=== PATIENT | male | born 1945 | race Caucasian/White ===

== ENCOUNTER → 2017-01-23 | Outpatient (REF) | payer OTHER ==
[~2017-01-23] MED LIST: /HCTZ25TA PO; /LINE60TA PO; AMLO10TA2 PO; ANDR1.62 TD; ASPI81TA85 PO; ATOR1TAB21 PO; BACTRIM; CENTTAB PO; COLA50CA3 PO; HYDR7.5T30 PO; LEVAQUIN; NEUR300C PO; PERCOCET PO; TRAZ50TA2 PO; TYLE325T5 PO; VIAG100T PO
[2017-01-23 12:37] LABS: ALBUMIN 4.1 GM/DL (3.2-5.2); ALBUMIN/GLOBULIN RATIO 1.52 (1.00-1.93); ALKALINE PHOSPHATASE 64 U/L (45-117); ALT/SGPT 49 U/L (12-78); ANION GAP 8 MEQ/L (8-16); AST/SGOT 33 U/L (15-37); BILIRUBIN,TOTAL 0.6 MG/DL (0.2-1.0); BLOOD UREA NITROGEN 17 MG/DL (7-18); CALCIUM LEVEL 9.6 MG/DL (8.8-10.2); CARBON DIOXIDE LEVEL 28 MEQ/L (21-32); CHLORIDE LEVEL 102 MEQ/L (98-107); CHOLESTEROL LEVEL 177 MG/DL (<200); CREATININE FOR GFR 0.85 MG/DL (0.70-1.30); GLOMERULAR FILTRATION RATE > 60.0 (>49); GLUCOSE, FASTING 166 MG/DL (80-110); POTASSIUM SERUM 3.8 MEQ/L (3.5-5.1); SODIUM LEVEL 138 MEQ/L (136-145); TOTAL PROTEIN 6.8 GM/DL (6.4-8.2); TRIGLYCERIDES LEVEL 79 MG/DL (<150)
[2017-01-25 00:06] LABS: PSA FREE 0.93 ng/mL; PSA TOTAL 4.9 ng/mL (0.0-4.0)
== END ==
LOC: M SFHCCLAY 07:05
PROVIDERS: ATTEND Urology
DX: E78.2 Mixed hyperlipidemia (principal); E11.9 Type 2 diabetes mellitus without complications; E29.1 Testicular hypofunction; I10 Essential (primary) hypertension

== ENCOUNTER → 2017-08-11 | Outpatient (REF) | payer OTHER ==
[2017-08-11 13:13] LABS: ALBUMIN 4.3 GM/DL (3.2-5.2); ALBUMIN/GLOBULIN RATIO 1.65 (1.00-1.93); ALKALINE PHOSPHATASE 51 U/L (45-117); ALT/SGPT 32 U/L (12-78); ANION GAP 10 MEQ/L (8-16); AST/SGOT 23 U/L (7-37); BILIRUBIN,TOTAL 0.4 MG/DL (0.2-1.0); BLOOD UREA NITROGEN 12 MG/DL (7-18); CALCIUM LEVEL 9.7 MG/DL (8.8-10.2); CARBON DIOXIDE LEVEL 27 MEQ/L (21-32); CHLORIDE LEVEL 101 MEQ/L (98-107); CHOLESTEROL LEVEL 167 MG/DL (<200); CREATININE FOR GFR 0.87 MG/DL (0.70-1.30); GLOMERULAR FILTRATION RATE > 60.0 (>42); GLUCOSE, FASTING 127 MG/DL (83-110); POTASSIUM SERUM 3.5 MEQ/L (3.5-5.1); SODIUM LEVEL 138 MEQ/L (136-145); TOTAL PROTEIN 6.9 GM/DL (6.4-8.2); TRIGLYCERIDES LEVEL 131 MG/DL (<150)
== END ==
LOC: M SFHCCLAY 07:32
PROVIDERS: ATTEND Family Medicine
DX: E78.2 Mixed hyperlipidemia (principal); E11.9 Type 2 diabetes mellitus without complications; E29.1 Testicular hypofunction; I10 Essential (primary) hypertension

== ENCOUNTER → 2017-11-11 | Outpatient (REF) | payer OTHER, MEDICARE ==
[2017-11-12 11:31] LABS: BASO % 0.7 % (0.0-1.0); EOS # 0.1 10^3/uL (0.0-0.50); EOS % 1.5 % (0.0-3.0); HEMATOCRIT 37.7 % (42.0-52.0); HEMOGLOBIN 13.5 g/dl (14.0-18.0); IMMATURE GRANULOCYTE % 0.4 % (0-3.0); LYMPH # 0.9 10^3/uL (1.5-4.5); LYMPH % 16.6 % (24.0-44.0); MEAN CORPUSCULAR HEMOGLOBIN 32.8 pg (27.0-33.0); MEAN CORPUSCULAR HGB CONC 35.8 g/dl (32.0-36.5); MEAN CORPUSCULAR VOLUME 91.7 fl (80.0-96.0); MONO # 0.5 10^3/uL (0.0-0.8); NEUTROPHILS # 3.9 10^3/uL (1.8-7.7); NEUTROPHILS % 71.8 % (36.0-66.0); PLATELET COUNT, AUTOMATED 264 10^3/uL (150-450); RED BLOOD COUNT 4.11 10^6/uL (4.30-6.10); RED CELL DISTRIBUTION WIDTH 11.8 % (11.5-14.5); WHITE BLOOD COUNT 5.4 10^3/uL (4.0-10.0)
[2017-11-12 11:50] LABS: ALBUMIN 4.2 GM/DL (3.2-5.2); ALKALINE PHOSPHATASE 91 U/L (45-117); ALT/SGPT 91 U/L (12-78); ANION GAP 8 MEQ/L (8-16); AST/SGOT 55 U/L (7-37); BILIRUBIN,TOTAL 0.5 MG/DL (0.2-1.0); BLOOD UREA NITROGEN 14 MG/DL (7-18); CALCIUM LEVEL 9.9 MG/DL (8.8-10.2); CARBON DIOXIDE LEVEL 31 MEQ/L (21-32); CHLORIDE LEVEL 97 MEQ/L (98-107); GLOMERULAR FILTRATION RATE > 60.0 (>42); GLUCOSE, FASTING 134 MG/DL (70-100); POTASSIUM SERUM 3.8 MEQ/L (3.5-5.1); SODIUM LEVEL 136 MEQ/L (136-145); TOTAL PROTEIN 7.2 GM/DL (6.4-8.2)
== END ==
LOC: M SFHCCLAY 15:25
DX: R50.9 Fever, unspecified (principal)
CPT/HCPCS: 80053

== ENCOUNTER → 2017-12-19 | Outpatient (REF) | payer MEDICARE, OTHER ==
[2017-12-19 12:53] LABS: BASO # 0.1 10^3/uL (0.0-0.2); BASO % 0.9 % (0.0-1.0); EOS # 0.4 10^3/uL (0.0-0.50); EOS % 6.5 % (0.0-3.0); HEMATOCRIT 40.9 % (42.0-52.0); HEMOGLOBIN 14.8 g/dl (13.5-17.5); IMMATURE GRANULOCYTE % 0.2 % (0-3.0); LYMPH # 1.5 10^3/uL (1.5-4.5); LYMPH % 25.9 % (24.0-44.0); MEAN CORPUSCULAR HEMOGLOBIN 32.6 pg (27.0-33.0); MEAN CORPUSCULAR HGB CONC 36.2 g/dl (32.0-36.5); MEAN CORPUSCULAR VOLUME 90.1 fl (80.0-96.0); MONO # 0.6 10^3/uL (0.0-0.8); MONO % 11.1 % (0.0-5.0); NEUTROPHILS # 3.2 10^3/uL (1.8-7.7); NEUTROPHILS % 55.4 % (36.0-66.0); PLATELET COUNT, AUTOMATED 233 10^3/uL (150-450); RED BLOOD COUNT 4.54 10^6/uL (4.30-6.10); WHITE BLOOD COUNT 5.7 10^3/uL (4.0-10.0)
[2017-12-19 13:13] LABS: ALBUMIN 4.5 GM/DL (3.2-5.2); ALBUMIN/GLOBULIN RATIO 1.45 (1.00-1.93); ALKALINE PHOSPHATASE 57 U/L (45-117); ALT/SGPT 32 U/L (12-78); AST/SGOT 23 U/L (7-37); BILIRUBIN,DIRECT 0.2 MG/DL (0.0-0.2); BILIRUBIN,TOTAL 0.7 MG/DL (0.2-1.0); TOTAL PROTEIN 7.6 GM/DL (6.4-8.2)
== END ==
LOC: M SFHCCLAY 08:27
DX: D64.9 Anemia, unspecified (principal)
CPT/HCPCS: 80076

== ENCOUNTER → 2018-02-11 | Outpatient (REF) | payer MEDICARE, OTHER ==
[2018-02-11 17:09] LABS: ALBUMIN 4.2 GM/DL (3.2-5.2); ALKALINE PHOSPHATASE 56 U/L (45-117); ALT/SGPT 39 U/L (12-78); ANION GAP 9 MEQ/L (8-16); AST/SGOT 26 U/L (7-37); BILIRUBIN,TOTAL 0.6 MG/DL (0.2-1.0); BLOOD UREA NITROGEN 21 MG/DL (7-18); CALCIUM LEVEL 9.9 MG/DL (8.8-10.2); CARBON DIOXIDE LEVEL 26 MEQ/L (21-32); CHLORIDE LEVEL 102 MEQ/L (98-107); CREATININE FOR GFR 0.95 MG/DL (0.70-1.30); GLOMERULAR FILTRATION RATE > 60.0 (>42); GLUCOSE, FASTING 130 MG/DL (70-100); POTASSIUM SERUM 3.8 MEQ/L (3.5-5.1); SODIUM LEVEL 137 MEQ/L (136-145); TOTAL PROTEIN 7.2 GM/DL (6.4-8.2)
[2018-02-11 17:15] LABS: HEMATOCRIT 39.9 % (42.0-52.0); HEMOGLOBIN 14.1 g/dl (13.5-17.5); MEAN CORPUSCULAR HEMOGLOBIN 33.3 pg (27.0-33.0); MEAN CORPUSCULAR HGB CONC 35.3 g/dl (32.0-36.5); MEAN CORPUSCULAR VOLUME 94.3 fl (80.0-96.0); PLATELET COUNT, AUTOMATED 288 10^3/uL (150-450); RED BLOOD COUNT 4.23 10^6/uL (4.30-6.10); RED CELL DISTRIBUTION WIDTH 12.6 % (11.5-14.5); WHITE BLOOD COUNT 5.4 10^3/uL (4.0-10.0)
[2018-02-11 17:23] LABS: APPEARANCE, URINE CLEAR (CLEAR); BACTERIA, URINE AUTO NEGATIVE (NEGATIVE); BILIRUBIN, URINE AUTO NEGATIVE (NEGATIVE); BLOOD, URINE BLOOD NEGATIVE (NEGATIVE); COLOR, URINE YELLOW (YELLOW); GLUCOSE, URINE (UA) AUTO NEGATIVE (NEGATIVE); KETONE, URINE AUTO NEGATIVE (NEGATIVE); LEUKOCYTE ESTERASE, URINE AUTO NEGATIVE (NEGATIVE); MUCUS, URINE SMALL (NEGATIVE); NITRITE, URINE AUTO NEGATIVE (NEGATIVE); PROTEIN, URINE AUTO NEGATIVE (NEGATIVE); RBC, URINE AUTO 1 /HPF (0-3); SPECIFIC GRAVITY URINE AUTO 1.021 (1.002-1.035); SQUAMOUS EPITHELIAL CELL UR AU 0 /HPF (0-6); UROBILINOGEN, URINE AUTO 0.2 mg/dL (0.0-2.0); WBC, URINE AUTO 0 /HPF (0-3)
[2018-02-14 00:07] LABS: PSA FREE 0.96 ng/mL; PSA TOTAL 4.8 ng/mL (0.0-4.0)
== END ==
LOC: M SFHCCLAY 10:09
DX: N52.9 Male erectile dysfunction, unspecified (principal)
CPT/HCPCS: 84403

== ENCOUNTER → 2018-06-03 | Outpatient (REF) | payer MEDICARE, OTHER ==
[2018-06-03 12:31] LABS: ESTIMATED AVERAGE GLUCOSE 128 MG/DL (60-110); HEMOGLOBIN A1c 6.1 %
[2018-06-03 12:47] LABS: CHOLESTEROL LEVEL 137 MG/DL (<200); CHOLESTEROL RISK RATIO 3.914 (<5); HDL CHOLESTEROL 35 MG/DL (>40); LDL CHOLESTEROL 81 MG/DL (<100); NON-HDL-C 102 MG/DL; TRIGLYCERIDES LEVEL 103 MG/DL (<150)
[2018-06-03 12:52] LABS: CREATININE, URINE 67.2 MG/DL; MALB URINE SIEMENS < 5.0 MG/L
[2018-06-03 13:07] LABS: MAU/CREAT RATIO 7.4 MCG/MG (0.0-30.0)
== END ==
LOC: M SFHCCLAY 07:20
DX: E11.9 Type 2 diabetes mellitus without complications (principal); E78.2 Mixed hyperlipidemia
CPT/HCPCS: 83036

== ENCOUNTER → 2018-09-16 | Outpatient (REF) | payer MEDICARE, OTHER ==
[2018-09-16 11:28] LABS: ALBUMIN 4.2 GM/DL (3.2-5.2); ALT/SGPT 22 U/L (12-78); BILIRUBIN,TOTAL 0.4 MG/DL (0.2-1.0); BLOOD UREA NITROGEN 15 MG/DL (7-18); CALCIUM LEVEL 9.5 MG/DL (8.8-10.2); CARBON DIOXIDE LEVEL 28 MEQ/L (21-32); CHLORIDE LEVEL 97 MEQ/L (98-107); CHOLESTEROL LEVEL 131 MG/DL (<200); CREATININE FOR GFR 0.98 MG/DL (0.70-1.30); GLOMERULAR FILTRATION RATE > 60.0 (>42); GLUCOSE, FASTING 146 MG/DL (70-100); HDL CHOLESTEROL 59 MG/DL (>40); LDL CHOLESTEROL 54 MG/DL (<100); NON-HDL-C 72 MG/DL; SODIUM LEVEL 133 MEQ/L (136-145); TOTAL PROTEIN 6.8 GM/DL (6.4-8.2); TRIGLYCERIDES LEVEL 90 MG/DL (<150)
[2018-09-16 11:39] LABS: HEMOGLOBIN A1c 6.6 %
== END ==
LOC: M SFHCCLAY 08:03
PROVIDERS: ATTEND Nurse Practitioner Family
DX: I10 Essential (primary) hypertension (principal); E11.9 Type 2 diabetes mellitus without complications; E78.2 Mixed hyperlipidemia

== ENCOUNTER → 2018-12-31 | Outpatient (REF) | payer OTHER ==
[~2018-12-31] MED LIST changes: -/HCTZ25TA PO; -/LINE60TA PO; +HYDR-3644 PO; +OXYC1TAB23 PO; -PERCOCET PO; +ZYVO100T PO
[2018-12-31 16:59] LABS: APPEARANCE, URINE CLEAR (CLEAR); BACTERIA, URINE AUTO NEGATIVE (NEGATIVE); BILIRUBIN, URINE AUTO NEGATIVE (NEGATIVE); BLOOD, URINE BLOOD NEGATIVE (NEGATIVE); COLOR, URINE YELLOW (YELLOW); GLUCOSE, URINE (UA) AUTO NEGATIVE (NEGATIVE); KETONE, URINE AUTO NEGATIVE (NEGATIVE); LEUKOCYTE ESTERASE, URINE AUTO NEGATIVE (NEGATIVE); MUCUS, URINE SMALL (NEGATIVE); NITRITE, URINE AUTO NEGATIVE (NEGATIVE); PROTEIN, URINE AUTO NEGATIVE (NEGATIVE); RBC, URINE AUTO 0 /HPF (0-3); SPECIFIC GRAVITY URINE AUTO 1.012 (1.002-1.035); SQUAMOUS EPITHELIAL CELL UR AU 0 /HPF (0-6); UROBILINOGEN, URINE AUTO 0.2 mg/dL (0.0-2.0); WBC, URINE AUTO 0 /HPF (0-3)
[2018-12-31 17:00] LABS: MEAN CORPUSCULAR HEMOGLOBIN 30.6 pg (27.0-33.0); MEAN CORPUSCULAR HGB CONC 34.2 g/dl (32.0-36.5); MEAN CORPUSCULAR VOLUME 89.4 fl (80.0-96.0); PLATELET COUNT, AUTOMATED 240 10^3/uL (150-450); RED BLOOD COUNT 4.25 10^6/uL (4.30-6.10)
[2018-12-31 17:28] LABS: CREATININE, URINE 82.1 MG/DL
[2018-12-31 17:30] LABS: ALT/SGPT 25 U/L (12-78); BILIRUBIN,TOTAL 0.3 MG/DL (0.2-1.0); BLOOD UREA NITROGEN 10 MG/DL (7-18); CALCIUM LEVEL 9.5 MG/DL (8.8-10.2); CARBON DIOXIDE LEVEL 29 MEQ/L (21-32); CHLORIDE LEVEL 103 MEQ/L (98-107); CREATININE FOR GFR 0.85 MG/DL (0.70-1.30); GLOMERULAR FILTRATION RATE > 60.0 (>42); GLUCOSE, FASTING 88 MG/DL (70-100); POTASSIUM SERUM 4.1 MEQ/L (3.5-5.1); SODIUM LEVEL 137 MEQ/L (136-145)
[2018-12-31 17:52] LABS: HEMOGLOBIN A1c 6.7 %
[2019-01-03 00:06] LABS: TESTOSTERONE FREE (DIRECT) 20.1 pg/mL (6.6-18.1)
== END ==
LOC: M SFHCCLAY 13:36
PROVIDERS: ATTEND Nurse Practitioner Family
DX: E11.9 Type 2 diabetes mellitus without complications (principal)

== ENCOUNTER → 2019-05-13 | Outpatient (REF) | payer OTHER ==
[2019-05-13 13:47] LABS: HEMATOCRIT 42.4 % (42.0-52.0); HEMOGLOBIN 14.1 g/dl (13.5-17.5); MEAN CORPUSCULAR HEMOGLOBIN 29.4 pg (27.0-33.0); MEAN CORPUSCULAR HGB CONC 33.3 g/dl (32.0-36.5); MEAN CORPUSCULAR VOLUME 88.5 fl (80.0-96.0); PLATELET COUNT, AUTOMATED 264 10^3/uL (150-450); RED BLOOD COUNT 4.79 10^6/uL (4.30-6.10); WHITE BLOOD COUNT 5.7 10^3/uL (4.0-10.0)
[2019-05-13 13:52] LABS: PERCENT SATURATION 10.8 % (19.7-50.0)
[2019-05-13 13:57] LABS: FOLATE 23.6 NG/ML (>5.4)
== END ==
LOC: M SFHCCLAY 07:50
PROVIDERS: ATTEND Nurse Practitioner Family
DX: D64.9 Anemia, unspecified (principal); E11.9 Type 2 diabetes mellitus without complications

== ENCOUNTER → 2019-09-15 | Outpatient (REF) | payer OTHER ==
[2019-09-15 17:19] LABS: CHOLESTEROL RISK RATIO 2.75 (<5); PERCENT SATURATION 43.7 % (19.7-50.0)
[2019-09-15 17:24] LABS: TOTAL 25(OH) VITAMIN D 32.6 NG/ML (30.0-100.0)
[2019-09-15 17:25] LABS: FOLATE 14.9 NG/ML (>5.4)
[2019-09-15 17:27] LABS: HEMATOCRIT 41.8 % (42.0-52.0); HEMOGLOBIN 14.1 g/dl (13.5-17.5); MEAN CORPUSCULAR HEMOGLOBIN 31.2 pg (27.0-33.0); MEAN CORPUSCULAR HGB CONC 33.7 g/dl (32.0-36.5); MEAN CORPUSCULAR VOLUME 92.5 fl (80.0-96.0); PLATELET COUNT, AUTOMATED 240 10^3/uL (150-450); RED BLOOD COUNT 4.52 10^6/uL (4.30-6.10); WHITE BLOOD COUNT 5.6 10^3/uL (4.0-10.0)
[2019-09-15 17:53] LABS: HEMOGLOBIN A1c 6.1 %
[2019-09-15 17:59] LABS: CREATININE, URINE 63.4 MG/DL; MALB URINE SIEMENS 6.2 MG/L; MAU/CREAT RATIO 9.7 MCG/MG (0.0-30.0)
== END ==
LOC: M SFHCCAPE 08:54
PROVIDERS: ATTEND Nurse Practitioner Family
DX: D50.9 Iron deficiency anemia, unspecified (principal); E11.9 Type 2 diabetes mellitus without complications; E78.2 Mixed hyperlipidemia; Z13.21 Encounter for screening for nutritional disorder

== ENCOUNTER → 2020-05-26 | Outpatient (REF) | payer OTHER ==
[2020-05-26 12:59] LABS: HEMATOCRIT 41.3 % (42.0-52.0); HEMOGLOBIN 13.9 g/dl (13.5-17.5); MEAN CORPUSCULAR HEMOGLOBIN 30.9 pg (27.0-33.0); MEAN CORPUSCULAR HGB CONC 33.7 g/dl (32.0-36.5); MEAN CORPUSCULAR VOLUME 91.8 fl (80.0-96.0); PLATELET COUNT, AUTOMATED 264 10^3/uL (150-450); WHITE BLOOD COUNT 4.9 10^3/uL (4.0-10.0)
[2020-05-26 13:24] LABS: ALT/SGPT 45 U/L (12-78); BILIRUBIN,TOTAL 0.3 MG/DL (0.2-1.0); BLOOD UREA NITROGEN 13 MG/DL (7-18); CALCIUM LEVEL 9.5 MG/DL (8.8-10.2); CARBON DIOXIDE LEVEL 28 MEQ/L (21-32); CHLORIDE LEVEL 105 MEQ/L (98-107); GLOMERULAR FILTRATION RATE > 60.0 (>42); GLUCOSE, FASTING 117 MG/DL (70-100); POTASSIUM SERUM 3.7 MEQ/L (3.5-5.1); SODIUM LEVEL 140 MEQ/L (136-145); TRIGLYCERIDES LEVEL 64 MG/DL (<150)
[2020-05-26 13:25] LABS: ALBUMIN 3.7 GM/DL (3.2-5.2); CHOLESTEROL LEVEL 139 MG/DL (<200); CHOLESTEROL RISK RATIO 2.482 (<5); HDL CHOLESTEROL 56 MG/DL (>40); LDL CHOLESTEROL 70 MG/DL (<100); NON-HDL-C 83 MG/DL; TOTAL PROTEIN 6.7 GM/DL (6.4-8.2)
[2020-05-26 15:29] LABS: TOTAL 25(OH) VITAMIN D 49.1 NG/ML (30.0-100.0)
== END ==
LOC: M SFHCCLAY 12:02
PROVIDERS: ATTEND Nurse Practitioner Family
DX: I10 Essential (primary) hypertension (principal); E78.5 Hyperlipidemia, unspecified; E55.9 Vitamin D deficiency, unspecified

== ENCOUNTER → 2020-08-10 | Outpatient (REF) | payer OTHER ==
[2020-08-10 12:41] LABS: MALB URINE SIEMENS 11.7 MG/L
[2020-08-10 13:12] LABS: HEMOGLOBIN A1c 5.7 %
[2020-08-11 16:08] LABS: TESTOSTERONE FREE (DIRECT) 15.6 pg/mL (6.6-18.1)
== END ==
LOC: M LABSMT 08:09
PROVIDERS: ATTEND Nurse Practitioner Women's Health
DX: E29.1 Testicular hypofunction (principal); E11.9 Type 2 diabetes mellitus without complications; Z12.5 Encounter for screening for malignant neoplasm of prostate
CPT/HCPCS: 82043; 83036; 84402; 84403; G0103

== ENCOUNTER → 2020-10-02 | Outpatient (REF) | payer OTHER ==
[2020-10-02 11:27] LABS: HEMATOCRIT 40.5 % (42.0-52.0); HEMOGLOBIN 13.7 g/dl (13.5-17.5); MEAN CORPUSCULAR HEMOGLOBIN 31.1 pg (27.0-33.0); MEAN CORPUSCULAR HGB CONC 33.8 g/dl (32.0-36.5); PLATELET COUNT, AUTOMATED 312 10^3/uL (150-450); WHITE BLOOD COUNT 6.7 10^3/uL (4.0-10.0)
[2020-10-02 12:18] LABS: ALBUMIN 4.2 GM/DL (3.2-5.2); ALT/SGPT 109 U/L (12-78); BILIRUBIN,TOTAL 0.4 MG/DL (0.2-1.0); BLOOD UREA NITROGEN 16 MG/DL (7-18); CARBON DIOXIDE LEVEL 29 MEQ/L (21-32); CHLORIDE LEVEL 98 MEQ/L (98-107); CREATININE FOR GFR 0.98 MG/DL (0.70-1.30); GLOMERULAR FILTRATION RATE > 60.0 (>42); GLUCOSE, FASTING 159 MG/DL (70-100); POTASSIUM SERUM 3.7 MEQ/L (3.5-5.1); PROSTATIC SPECIFIC AG MONITOR 3.22 NG/ML (< 4.00); SODIUM LEVEL 135 MEQ/L (136-145); TOTAL PROTEIN 7.2 GM/DL (6.4-8.2)
== END ==
LOC: M SFHCCLAY 08:04
PROVIDERS: ATTEND Nurse Practitioner Women's Health
DX: E29.1 Testicular hypofunction (principal); Z12.5 Encounter for screening for malignant neoplasm of prostate; R97.20 Elevated prostate specific antigen [PSA]
CPT/HCPCS: 80053; 85027; G0103

== ENCOUNTER → 2020-12-25 | Outpatient (REF) | payer OTHER | LOC: M SFHCCLAY 12:52 | PROVIDERS: ATTEND Physician Assistant | DX: L02.416 Cutaneous abscess of left lower limb (principal) | CPT/HCPCS: 87070; 87077; 87186; G0463 ==

== ENCOUNTER → 2021-01-24 | Outpatient (REF) | payer OTHER ==
[2021-01-24 16:25] LABS: HEMATOCRIT 33.9 % (42.0-52.0); HEMOGLOBIN 11.2 g/dl (13.5-17.5); MEAN CORPUSCULAR VOLUME 93.9 fl (80.0-96.0); PLATELET COUNT, AUTOMATED 294 10^3/uL (150-450); RED BLOOD COUNT 3.61 10^6/uL (4.30-6.10); WHITE BLOOD COUNT 6.6 10^3/uL (4.0-10.0)
[2021-01-24 16:26] LABS: ALBUMIN 3.7 GM/DL (3.2-5.2); ALT/SGPT 27 U/L (12-78); BILIRUBIN,TOTAL 0.3 MG/DL (0.2-1.0); BLOOD UREA NITROGEN 15 MG/DL (7-18); CALCIUM LEVEL 9.4 MG/DL (8.8-10.2); CARBON DIOXIDE LEVEL 25 MEQ/L (21-32); CHLORIDE LEVEL 107 MEQ/L (98-107); CHOLESTEROL LEVEL 138 MG/DL (<200); CHOLESTEROL RISK RATIO 3.066 (<5); CREATININE FOR GFR 0.78 MG/DL (0.70-1.30); GLOMERULAR FILTRATION RATE > 60.0 (>42); GLUCOSE, FASTING 101 MG/DL (70-100); HDL CHOLESTEROL 45 MG/DL (>40); LDL CHOLESTEROL 75 MG/DL (<100); NON-HDL-C 93 MG/DL; POTASSIUM SERUM 3.9 MEQ/L (3.5-5.1); PROSTATIC SPECIFIC AG MONITOR 3.08 NG/ML (< 4.00); SODIUM LEVEL 141 MEQ/L (136-145); TOTAL PROTEIN 6.2 GM/DL (6.4-8.2); TRIGLYCERIDES LEVEL 92 MG/DL (<150)
[2021-01-26 10:08] LABS: TESTOSTERONE FREE (DIRECT) 4.4 pg/mL (6.6-18.1)
== END ==
LOC: M SFHCCLAY 09:16
PROVIDERS: ATTEND Nurse Practitioner Family
DX: E29.1 Testicular hypofunction (principal); E11.9 Type 2 diabetes mellitus without complications; R97.20 Elevated prostate specific antigen [PSA]

== ENCOUNTER → 2021-06-01 | Outpatient (REF) | payer OTHER ==
[2021-06-01 14:51] LABS: HEMATOCRIT 40.8 % (42.0-52.0); HEMOGLOBIN 13.7 g/dl (13.5-17.5); MEAN CORPUSCULAR HEMOGLOBIN 30.2 pg (27.0-33.0); MEAN CORPUSCULAR HGB CONC 33.6 g/dl (32.0-36.5); MEAN CORPUSCULAR VOLUME 90.1 fl (80.0-96.0); PLATELET COUNT, AUTOMATED 295 10^3/uL (150-450); RED BLOOD COUNT 4.53 10^6/uL (4.30-6.10); WHITE BLOOD COUNT 5.1 10^3/uL (4.0-10.0)
[2021-06-01 15:15] LABS: PERCENT SATURATION 22.2 % (19.7-50.0)
[2021-06-01 15:22] LABS: FOLATE 13.2 NG/ML (>5.4)
== END ==
LOC: M SFHCCLAY 08:13
PROVIDERS: ATTEND Family Medicine
DX: D50.9 Iron deficiency anemia, unspecified (principal)

== ENCOUNTER → 2021-06-07 | Outpatient (REF) | payer OTHER ==
[2021-06-08 14:01] LABS: BLOOD UREA NITROGEN 20 MG/DL (7-18); CARBON DIOXIDE LEVEL 29 MEQ/L (21-32); CHLORIDE LEVEL 106 MEQ/L (98-107); CREATININE FOR GFR 0.99 MG/DL (0.70-1.30); GLOMERULAR FILTRATION RATE > 60.0 (>42); GLUCOSE, FASTING 187 MG/DL (70-100); SODIUM LEVEL 139 MEQ/L (136-145)
== END ==
LOC: M SFHCCLAY 14:01
PROVIDERS: ATTEND Family Medicine
DX: I11.9 Hypertensive heart disease without heart failure (principal); Z23 Encounter for immunization
CPT/HCPCS: 80048; 90682; G0008; G0463

== ENCOUNTER → 2021-12-11 | Outpatient (REF) | payer OTHER ==
[2021-12-11 11:32] LABS: HEMATOCRIT 35.2 % (42.0-52.0); HEMOGLOBIN 12.3 g/dl (13.5-17.5); MEAN CORPUSCULAR HEMOGLOBIN 31.8 pg (27.0-33.0); MEAN CORPUSCULAR HGB CONC 34.9 g/dl (32.0-36.5); PLATELET COUNT, AUTOMATED 285 10^3/uL (150-450); RED BLOOD COUNT 3.87 10^6/uL (4.30-6.10); WHITE BLOOD COUNT 8.7 10^3/uL (4.0-10.0)
[2021-12-11 12:20] LABS: CREATININE, URINE 74.4 MG/DL; MALB URINE SIEMENS 6.2 MG/L; MAU/CREAT RATIO 8.3 MCG/MG (0.0-30.0)
[2021-12-11 12:28] LABS: BLOOD UREA NITROGEN 18 MG/DL (7-18); CALCIUM LEVEL 9.6 MG/DL (8.8-10.2); CARBON DIOXIDE LEVEL 29 MEQ/L (21-32); CHLORIDE LEVEL 105 MEQ/L (98-107); CHOLESTEROL LEVEL 167 MG/DL (<200); CREATININE FOR GFR 0.86 MG/DL (0.70-1.30); GLOMERULAR FILTRATION RATE > 60.0 (>42); GLUCOSE, FASTING 126 MG/DL (70-100); HDL CHOLESTEROL 63 MG/DL (>40); LDL CHOLESTEROL 86 MG/DL (<100); NON-HDL-C 104 MG/DL; SODIUM LEVEL 141 MEQ/L (136-145); TRIGLYCERIDES LEVEL 91 MG/DL (<150)
[2021-12-11 13:12] LABS: HEMOGLOBIN A1c 6.2 %
[2021-12-12 17:10] LABS: TESTOSTERONE FREE (DIRECT) 4.4 pg/mL (6.6-18.1)
== END ==
LOC: M SFHCCLAY 08:12
PROVIDERS: ATTEND Nurse Practitioner Women's Health
DX: I11.9 Hypertensive heart disease without heart failure (principal); E11.9 Type 2 diabetes mellitus without complications; E78.2 Mixed hyperlipidemia; E29.1 Testicular hypofunction; D50.9 Iron deficiency anemia, unspecified; Z12.5 Encounter for screening for malignant neoplasm of prostate
CPT/HCPCS: 80048; 80061; 82043; 83036; 84402; 84403; 85027; G0103

== ENCOUNTER → 2022-01-08 | Outpatient (REF) | payer OTHER ==
[2022-01-10 23:08] LABS: PSA % FREE 21.6 % (.); PSA FREE 0.95 ng/mL; PSA TOTAL 4.4 ng/mL (0.0-4.0)
== END ==
LOC: M SFHCCLAY 15:27
PROVIDERS: ATTEND Nurse Practitioner Women's Health
DX: R97.20 Elevated prostate specific antigen [PSA] (principal)

== ENCOUNTER → 2022-05-15 | Outpatient (REF) | payer OTHER ==
[2022-05-15 19:17] LABS: MEAN CORPUSCULAR HEMOGLOBIN 32.3 pg (27.0-33.0); MEAN CORPUSCULAR HGB CONC 34.1 g/dl (32.0-36.5); MEAN CORPUSCULAR VOLUME 94.7 fl (80.0-96.0); PLATELET COUNT, AUTOMATED 246 10^3/uL (150-450); RED BLOOD COUNT 4.33 10^6/uL (4.30-6.10); WHITE BLOOD COUNT 5.1 10^3/uL (4.0-10.0)
[2022-05-15 19:42] LABS: ALBUMIN 4.2 GM/DL (3.2-5.2); ALT/SGPT 44 U/L (12-78); BILIRUBIN,TOTAL 0.3 MG/DL (0.2-1.0); BLOOD UREA NITROGEN 16 MG/DL (7-18); CALCIUM LEVEL 9.9 MG/DL (8.8-10.2); CARBON DIOXIDE LEVEL 25 MEQ/L (21-32); CHLORIDE LEVEL 103 MEQ/L (98-107); CHOLESTEROL LEVEL 187 MG/DL (<200); CHOLESTEROL RISK RATIO 2.633 (<5); CREATININE FOR GFR 0.97 MG/DL (0.70-1.30); GLOMERULAR FILTRATION RATE > 60.0 (>42); GLUCOSE, FASTING 86 MG/DL (70-100); HDL CHOLESTEROL 71 MG/DL (>40); LDL CHOLESTEROL 89 MG/DL (<100); NON-HDL-C 116 MG/DL; PROSTATIC SPECIFIC AG MONITOR 4.11 NG/ML (< 4.00); SODIUM LEVEL 136 MEQ/L (136-145); TOTAL PROTEIN 7.4 GM/DL (6.4-8.2); TRIGLYCERIDES LEVEL 137 MG/DL (<150)
[2022-05-15 20:12] LABS: HEMOGLOBIN A1c 5.8 %
== END ==
LOC: M SFHCCAPE 11:16
PROVIDERS: ATTEND Nurse Practitioner Family
DX: E78.2 Mixed hyperlipidemia (principal); E11.9 Type 2 diabetes mellitus without complications; I10 Essential (primary) hypertension; R97.20 Elevated prostate specific antigen [PSA]

== ENCOUNTER → 2022-08-01 | Outpatient (REF) | payer OTHER ==
[2022-08-01 20:04] LABS: HEMOGLOBIN A1c 5.5 % (4.0-6.0)
== END ==
LOC: M SFHCCAPE 10:43
PROVIDERS: ATTEND Nurse Practitioner Family
DX: E11.9 Type 2 diabetes mellitus without complications (principal)

== ENCOUNTER → 2022-11-18 | Outpatient (REF) | payer OTHER | LOC: M SFHCCAPE 08:43 | PROVIDERS: ATTEND Physician Assistant | DX: N40.1 Benign prostatic hyperplasia with lower urinary tract symptoms (principal) ==

== ENCOUNTER → 2023-05-14 | Outpatient (REF) | payer OTHER ==
[2023-05-14 18:46] LABS: HEMATOCRIT 37.2 % (42.0-52.0); HEMOGLOBIN 12.6 g/dl (13.5-17.5); MEAN CORPUSCULAR HGB CONC 33.9 g/dl (32.0-36.5); MEAN CORPUSCULAR VOLUME 94.4 fl (80.0-96.0); PLATELET COUNT, AUTOMATED 277 10^3/uL (150-450); RED BLOOD COUNT 3.94 10^6/uL (4.30-6.10); WHITE BLOOD COUNT 5.1 10^3/uL (4.0-10.0)
[2023-05-14 19:07] LABS: ALBUMIN 3.8 G/DL (3.2-5.2); ALKALINE PHOSPHATASE 79 U/L (46-116); ALT/SGPT 69 U/L (7.0-40); AST/SGOT 118 U/L (<34); BILIRUBIN,TOTAL 0.4 MG/DL (0.3-1.2); BLOOD UREA NITROGEN 11 MG/DL (9-23); CALCIUM LEVEL 9.7 MG/DL (8.3-10.6); CARBON DIOXIDE LEVEL 27 MMOL/L (20-31); CHLORIDE LEVEL 100 MMOL/L (98-107); CHOLESTEROL LEVEL 137 MG/DL (<200); CHOLESTEROL RISK RATIO 2.11 (<5); CREATININE FOR GFR 0.83 MG/DL (0.70-1.30); GLOMERULAR FILTRATION RATE > 60.0 (>42); GLUCOSE, FASTING 100 MG/DL (74-106); HDL CHOLESTEROL 64.9 MG/DL (>40); IRON (FE) 73 UG/DL (65-175); LDL CHOLESTEROL 57.1 MG/DL (<100); NON-HDL-C 72.1 MG/DL; PERCENT SATURATION 21.5 % (19.7-50.0); POTASSIUM SERUM 3.9 MMOL/L (3.5-5.1); SODIUM LEVEL 136 MMOL/L (136-145); TOTAL IRON BINDING CAPACITY 340 UG/DL (250-425); TOTAL PROTEIN 6.3 G/DL (5.7-8.2); TRIGLYCERIDES LEVEL 75 MG/DL (<150)
[2023-05-14 19:11] LABS: FERRITIN 148.3 NG/ML (10.5-307.3)
[2023-05-14 19:44] LABS: HEMOGLOBIN A1c 6.2 % (4.0-6.0)
== END ==
LOC: M SFHCCAPE 08:42
PROVIDERS: ATTEND Nurse Practitioner Family
DX: E11.9 Type 2 diabetes mellitus without complications (principal); I10 Essential (primary) hypertension; E78.2 Mixed hyperlipidemia; D50.9 Iron deficiency anemia, unspecified; N40.1 Benign prostatic hyperplasia with lower urinary tract symptoms
CPT/HCPCS: 80053; 80061; 82728; 83036; 83550; 85027; G0103

== ENCOUNTER → 2023-11-11 | Outpatient (REF) | payer OTHER ==
[2023-11-11 18:04] LABS: ALBUMIN 4.1 G/DL (3.2-5.2); ALKALINE PHOSPHATASE 67 U/L (46-116); ALT/SGPT 20 U/L (7.0-40); AST/SGOT 19 U/L (<34); BILIRUBIN,TOTAL 0.5 MG/DL (0.3-1.2); BLOOD UREA NITROGEN 12 MG/DL (9-23); CALCIUM LEVEL 9.6 MG/DL (8.3-10.6); CARBON DIOXIDE LEVEL 26 MMOL/L (20-31); CHLORIDE LEVEL 100 MMOL/L (98-107); CHOLESTEROL LEVEL 161 MG/DL (<200); CHOLESTEROL RISK RATIO 2.64 (<5); CREATININE FOR GFR 0.85 MG/DL (0.70-1.30); GLOMERULAR FILTRATION RATE > 60.0 (>42); GLUCOSE, FASTING 121 MG/DL (74-106); HDL CHOLESTEROL 60.8 MG/DL (>40); LDL CHOLESTEROL 83.4 MG/DL (<100); NON-HDL-C 100.2 MG/DL; POTASSIUM SERUM 3.6 MMOL/L (3.5-5.1); SODIUM LEVEL 136 MMOL/L (136-145); TOTAL PROTEIN 6.7 G/DL (5.7-8.2); TRIGLYCERIDES LEVEL 84 MG/DL (<150)
[2023-11-11 18:11] LABS: HEMOGLOBIN A1c 6.2 % (4.0-6.0)
== END ==
LOC: M SFHCCAPE 10:42
PROVIDERS: ATTEND Nurse Practitioner Family
DX: E11.9 Type 2 diabetes mellitus without complications (principal); I10 Essential (primary) hypertension; E78.2 Mixed hyperlipidemia; N40.1 Benign prostatic hyperplasia with lower urinary tract symptoms

== ENCOUNTER → 2023-11-24 | Outpatient (CLI) | payer OTHER | LOC: M RAD 08:25 | PROVIDERS: ATTEND Physician Assistant | DX: R33.9 Retention of urine, unspecified (principal) ==

== ENCOUNTER → 2023-12-18 | Outpatient (CLI) | payer OTHER | LOC: M CARPUL 09:11 | PROVIDERS: ATTEND Nurse Practitioner Family | DX: R01.1 Cardiac murmur, unspecified (principal) ==

== ENCOUNTER → 2024-11-09 | Outpatient (REF) | payer OTHER ==
[2024-11-09 18:40] LABS: HEMOGLOBIN A1c 5.9 % (4.0-6.0)
[2024-11-09 18:44] LABS: ALBUMIN 3.9 G/DL (3.2-5.2); ALKALINE PHOSPHATASE 70 U/L (40-129); ALT/SGPT 74 U/L (7.0-40); AST/SGOT 19 U/L (<34); BILIRUBIN,TOTAL 0.3 MG/DL (0.3-1.2); BLOOD UREA NITROGEN 13 MG/DL (9-23); CARBON DIOXIDE LEVEL 27 MMOL/L (20-31); CHLORIDE LEVEL 101 MMOL/L (98-107); CHOLESTEROL LEVEL 177 MG/DL (<200); CHOLESTEROL RISK RATIO 3.71 (<5); CREATININE FOR GFR 0.89 MG/DL (0.70-1.30); GLOMERULAR FILTRATION RATE > 60.0 (>42); GLUCOSE, FASTING 118 MG/DL (74-106); HDL CHOLESTEROL 47.6 MG/DL (>40); LDL CHOLESTEROL 95.6 MG/DL (<100); NON-HDL-C 129.4 MG/DL; POTASSIUM SERUM 3.8 MMOL/L (3.5-5.1); SODIUM LEVEL 137 MMOL/L (136-145); TOTAL PROTEIN 6.8 G/DL (5.7-8.2); TRIGLYCERIDES LEVEL 169 MG/DL (<150)
== END ==
LOC: M SFHCCAPE 07:41
PROVIDERS: ATTEND Nurse Practitioner Family
DX: I10 Essential (primary) hypertension (principal); E11.9 Type 2 diabetes mellitus without complications; E78.2 Mixed hyperlipidemia; D50.9 Iron deficiency anemia, unspecified; N40.1 Benign prostatic hyperplasia with lower urinary tract symptoms; M54.50 Low back pain, unspecified; G25.81 Restless legs syndrome; N52.9 Male erectile dysfunction, unspecified; R97.20 Elevated prostate specific antigen [PSA]

== ENCOUNTER → 2025-02-28 | Outpatient (REF) | payer OTHER | LOC: M SFHCCAPE 14:23 | PROVIDERS: ATTEND Physician Assistant | DX: L02.416 Cutaneous abscess of left lower limb (principal) ==

== ENCOUNTER → 2025-03-16 | Outpatient (CLI) | payer OTHER | LOC: M CLY 07:56 | PROVIDERS: ATTEND Physician Assistant | DX: M20.001 Unspecified deformity of right finger(s) (principal); M18.11 Unilateral primary osteoarthritis of first carpometacarpal joint, right hand ==

== ENCOUNTER 2025-06-29 10:35 | Day surgery (SDC) | payer OTHER ==
[~2025-06-29] VITALS: Ht 170.2 cm; Wt 69.1 kg
[~2025-06-29 10:35] MED LIST changes: +AMLO-751 PO; +ATOR1TAB21; +GABA-1172; +HYDR-3490; +HYDR-3716; +TRAZ1TAB11
[2025-06-29 11:57] VITALS: TEMP 98.3
[2025-06-29 12:20] VITALS: BP 136/75; O2SAT 99
== END 2025-06-29 12:40 | disposition home or self-care (01) ==
LOC: M OPP 10:35
PROVIDERS: ATTEND Internal Medicine Gastroenterology
DX: Z12.11 Encounter for screening for malignant neoplasm of colon (principal); D12.2 Benign neoplasm of ascending colon; K57.30 Diverticulosis of large intestine without perforation or abscess without bleeding; K64.0 First degree hemorrhoids; Z86.0100 Personal history of colon polyps, unspecified; G47.30 Sleep apnea, unspecified; Z79.891 Long term (current) use of opiate analgesic; Z79.899 Other long term (current) drug therapy